=== PATIENT | female | born 1945 | race Caucasian/White ===

== ENCOUNTER 2020-12-11 23:44 | Observation (INO) ==
[2020-12-12 01:06] LABS: Basophils % 0.2 %; Hematocrit 35.7 % (35.3-44.9); Hemoglobin 10.9 g/dL (11.5-15.4); Immature Granulocytes % 0.5 % (0-4); Lymphocytes # 0.4 K/mcL (0.6-4.6); Lymphocytes % 3.8 %; Mean Corpuscular HGB Conc 30.5 g/dL (31.6-35.5); Mean Corpuscular Hemoglobin 27.9 pg (28.0-33.3); Mean Corpuscular Volume 91.3 fL (83.0-100.0); Mean Platelet Volume 10.7 fL (9.4-12.4); Monocytes # 0.8 K/mcL (0.0-1.3); Monocytes % 7.6 %; Neutrophils # 9.8 K/mcL (1.6-8.9); Platelet Count 163 K/mcL (140-400); Red Blood Count 3.91 M/mcL (3.82-4.97); Segmented Neutrophils % 87.9 %; White Blood Count 11.1 K/mcL (4.3-11.1)
[2020-12-12 01:32] LABS: Calcium 9.6 mg/dL (8.6-10.3); Potassium 4.1 mEq/L (3.5-5.1); Troponin I 0.03 ng/mL (< 0.04)
[2020-12-12] MEDS ORDERED: Furosemide 40 MG/4 ML VIAL IVP ONE ×2 (02:17→13:14)
[2020-12-12] MEDS ORDERED: *HR* OxyCODONE Immed Rel 5 MG TABLET PO PRN ×2 (03:34→13:17)
[2020-12-12] MEDS ORDERED: *HR* HYDROcodone/Acet 5/325 mg TABLET PO PRN (03:34)
[2020-12-12] MEDS ORDERED: Ondansetron 4 MG/2 ML VIAL IVP PRN (03:34)
[2020-12-12] MEDS ORDERED: Naloxone 0.4 MG/ML INJ IVP PRN (03:34)
[2020-12-12] MEDS ORDERED: Acetaminophen 325 MG TABLET PO PRN (03:34)
[2020-12-12 03:40] LABS: Adenovirus Not Detected (Not Detect); Bordetella Pertussis Not Detected (Not Detect); Chlamydophila pneumoniae Not Detected (Not Detect); Coronavirus 229E Not Detected (Not Detect); Coronavirus HKU1 Not Detected (Not Detect); Coronavirus NL63 Not Detected (Not Detect); Coronavirus OC43 Not Detected (Not Detect); Human Metapneumovirus Not Detected (Not Detect); Human Rhinovirus/Enterovirus Not Detected (Not Detect); Influenza A Subtype 2009 H1 Not Detected (Not Detect); Influenza B Not Detected (Not Detect); Mycoplasma pneumoniae Not Detected (Not Detect); Parainfluenza Virus 1 Not Detected (Not Detect); Parainfluenza Virus 2 Not Detected (Not Detect); Parainfluenza Virus 3 Not Detected (Not Detect); Parainfluenza Virus 4 Not Detected (Not Detect); Respiratory Syncytial Virus Not Detected (Not Detect); SARS-CoV-2 Not Detected (Not Detect)
[2020-12-12] MEDS ORDERED: Perflutren Lipid Microsphere 1.3 ML in 0.9 % Sodium Chloride 8.7 ML IVP PRN (06:51)
[2020-12-12 07:35] LABS: Calcium 9.5 mg/dL (8.6-10.3); Potassium 3.8 mEq/L (3.5-5.1)
[2020-12-12] MEDS: cefTRIAXone 1,000 MG in Water for inj. (sterile) 10 ML IVP SCH (09:04)
[2020-12-12] MEDS ORDERED: Albumin 25% 25gram/100mL 25 GM/100 ML IV.SOLN IVPB ONE (13:15)
[2020-12-13 03:15] LABS: Basophils % 0.5 %; Eosinophils # 0.1 K/mcL (0.0-0.6); Hematocrit 29.8 % (35.3-44.9); Hemoglobin 9.4 g/dL (11.5-15.4); Immature Granulocytes % 0.2 % (0-4); Lymphocytes # 0.8 K/mcL (0.6-4.6); Lymphocytes % 18.4 %; Mean Corpuscular HGB Conc 31.5 g/dL (31.6-35.5); Mean Corpuscular Hemoglobin 28.7 pg (28.0-33.3); Mean Corpuscular Volume 91.1 fL (83.0-100.0); Mean Platelet Volume 10.6 fL (9.4-12.4); Monocytes # 0.7 K/mcL (0.0-1.3); Monocytes % 16.6 %; Neutrophils # 2.7 K/mcL (1.6-8.9); Platelet Count 125 K/mcL (140-400); Red Blood Count 3.27 M/mcL (3.82-4.97); Red Cell Distribution Width 15.3 % (11.5-14.5); Segmented Neutrophils % 62.3 %
[2020-12-13 03:16] LABS: White Blood Count 4.4 K/mcL (4.3-11.1)
[2020-12-13 03:37] LABS: Calcium 9.1 mg/dL (8.6-10.3); Phosphorous 2.8 mg/dL (2.7-4.5); Potassium 3.4 mEq/L (3.5-5.1)
[2020-12-13] MEDS: *HR* Heparin 5,000 UNIT/ML VIAL SQ SCH ×2 (05:38→16:55)
[2020-12-13] MEDS ORDERED: *HR* Enoxaparin 40 MG/0.4 ML SYRINGE SQ SCH (06:00)
[2020-12-13] MEDS: cefTRIAXone 1,000 MG in Water for inj. (sterile) 10 ML IVP SCH (08:52)
[2020-12-13] MEDS: predniSONE 20 MG TABLET PO SCH (13:20)
[2020-12-13] MEDS: Ipratropium/Albuterol Neb 3 ML IH SCH ×4 (15:27→23:24)
[2020-12-13 15:53] LABS: Bilirubin,Urine Negative (Negative); Blood,Urine Trace (Negative); Clarity,Urine Turbid (Clear); Color,Urine Yellow (Yellow); Glucose,Urine (UA) Normal (Normal); Ketones,Urine Negative (Negative); Leukocyte Esterase,Urine Large (Negative); Nitrite,Urine Negative (Negative); PH,Urine 8.5 pH Units (5.0-8.0); Protein,Urine 70 mg/dL (Neg-Trace); Specific Gravity,Urine 1.016 (1.010-1.025); Squamous Epithelial Cell,Urine Few per hpf (None-Few); Transitional Epi Cells,Urine Few per hpf (None-Few); Urobilinogen,Urine Normal (Normal); WBC,Urine TNTC per hpf (0-3)
[2020-12-14] MEDS: Ipratropium/Albuterol Neb 3 ML IH SCH ×7 (03:19→23:25)
[2020-12-14] MEDS: *HR* Heparin 5,000 UNIT/ML VIAL SQ SCH ×2 (05:09→17:17)
[2020-12-14] MEDS: cefTRIAXone 1,000 MG in Water for inj. (sterile) 10 ML IVP SCH (09:41)
[2020-12-14] MEDS: predniSONE 20 MG TABLET PO SCH (09:41)
[2020-12-14 10:18] LABS: Basophils % 0.3 %; Hematocrit 32.5 % (35.3-44.9); Immature Granulocytes % 0.6 % (0-4); Lymphocytes # 0.5 K/mcL (0.6-4.6); Lymphocytes % 13.7 %; Mean Corpuscular HGB Conc 30.8 g/dL (31.6-35.5); Mean Corpuscular Hemoglobin 27.9 pg (28.0-33.3); Mean Corpuscular Volume 90.8 fL (83.0-100.0); Monocytes # 0.4 K/mcL (0.0-1.3); Monocytes % 9.8 %; Neutrophils # 2.7 K/mcL (1.6-8.9); Platelet Count 141 K/mcL (140-400); Red Blood Count 3.58 M/mcL (3.82-4.97); Red Cell Distribution Width 14.7 % (11.5-14.5); Segmented Neutrophils % 75.6 %; White Blood Count 3.6 K/mcL (4.3-11.1)
[2020-12-14 10:36] LABS: BUN/Creatinine Ratio 18 (6-26); Blood Urea Nitrogen 19 mg/dL (8-23); Calcium 9.6 mg/dL (8.6-10.3); Carbon Dioxide 34 mEq/L (23-29); Chloride 100 mEq/L (98-107); Glucose 183 mg/dL (70-105); Magnesium 2.1 mg/dL (1.6-2.6); Osmolality,Calculated 295 (280-300); Potassium 3.6 mEq/L (3.5-5.1); Sodium 139 mEq/L (136-145); eGFR For African Americans > 60 (> 60); eGFR For Non-African Americans 51 (> 60)
[2020-12-15 03:10] VITALS: O2SAT 97
[2020-12-15] MEDS: Ipratropium/Albuterol Neb 3 ML IH SCH ×4 (03:57→15:26)
[2020-12-15] MEDS: *HR* Heparin 5,000 UNIT/ML VIAL SQ SCH (05:29)
[2020-12-15 07:49] VITALS: BP 97/58; PULSE 70; TEMP 97.8
[2020-12-15] MEDS: cefTRIAXone 1,000 MG in Water for inj. (sterile) 10 ML IVP SCH (08:28)
[2020-12-15] MEDS: predniSONE 20 MG TABLET PO SCH (08:28)
[2020-12-15 12:34] LABS: Adenovirus Not Detected (Not Detect); Bordetella Pertussis Not Detected (Not Detect); Chlamydophila pneumoniae Not Detected (Not Detect); Coronavirus 229E Not Detected (Not Detect); Coronavirus HKU1 Not Detected (Not Detect); Coronavirus NL63 Not Detected (Not Detect); Coronavirus OC43 Not Detected (Not Detect); Human Metapneumovirus Not Detected (Not Detect); Human Rhinovirus/Enterovirus Not Detected (Not Detect); Influenza A Subtype 2009 H1 Not Detected (Not Detect); Influenza B Not Detected (Not Detect); Mycoplasma pneumoniae Not Detected (Not Detect); Parainfluenza Virus 1 Not Detected (Not Detect); Parainfluenza Virus 2 Not Detected (Not Detect); Parainfluenza Virus 3 Not Detected (Not Detect); Parainfluenza Virus 4 Not Detected (Not Detect); Respiratory Syncytial Virus Not Detected (Not Detect); SARS-CoV-2 Not Detected (Not Detect)
== END 2020-12-15 16:34 ==
LOC: EMEROOARM 23:44 → 3BNU 23:44 → SUATTDRO 12-12 03:56 → 3BNU 12-12 05:17
PROVIDERS: ADMIT Family Medicine; ATTEND Student in an Organized Health Care Education/Training Program

== ENCOUNTER 2021-11-27 12:49 | Inpatient (IN) ==
[2021-11-27] MEDS ORDERED: Iopamidol - 370 500 ML MLS IVP ONE (15:18)
[2021-11-27] MEDS ORDERED: Ipratropium/Albuterol Neb 3 ML IH ONE (15:19)
[2021-11-27 16:08] LABS: Basophils % 0.3 %; Eosinophils % 0.1 %; Hematocrit 36.4 % (35.3-44.9); Hemoglobin 11.5 g/dL (11.5-15.4); Immature Granulocytes % 0.6 % (0-4); Lymphocytes # 0.2 K/mcL (0.6-4.6); Lymphocytes % 2.5 %; Mean Corpuscular HGB Conc 31.6 g/dL (31.6-35.5); Mean Corpuscular Hemoglobin 29.2 pg (28.0-33.3); Mean Corpuscular Volume 92.4 fL (83.0-100.0); Mean Platelet Volume 10.6 fL (9.4-12.4); Monocytes # 0.2 K/mcL (0.0-1.3); Monocytes % 3.4 %; Neutrophils # 6.6 K/mcL (1.6-8.9); Platelet Count 119 K/mcL (140-400); Red Blood Count 3.94 M/mcL (3.82-4.97); Red Cell Distribution Width 14.3 % (11.5-14.5); Segmented Neutrophils % 93.1 %; White Blood Count 7.1 K/mcL (4.3-11.1)
[2021-11-27 16:39] LABS: Albumin 3.8 g/dL (3.5-5.7); Albumin/Globulin Ratio 1.4 (1.1-2.2); Bilirubin,Direct 0.4 mg/dL (0.0-0.2); Bilirubin,Indirect 0.9 mg/dL (0.0-1.0); Bilirubin,Total 1.3 mg/dL (0.3-1.0); Calcium 9.5 mg/dL (8.6-10.3); Globulin 2.8 g/dL (2.4-3.5); Total Protein 6.6 g/dL (6.4-8.9); Troponin I 0.25 ng/mL (< 0.04)
[2021-11-27 16:41] LABS: Platelet Estimate Decreased (Normal)
[2021-11-27] MEDS ORDERED: Ringers Solution, Lactated 1,000 ML IVC ONE (17:17)
[2021-11-27 18:51] LABS: Influenza A PCR Negative (Negative); Influenza B PCR Negative (Negative); Resp. Syncytial Virus PCR Negative (Negative)
[2021-11-27 18:52] LABS: SARS-CoV-2 by PCR (In House) Negative (Negative)
[2021-11-27] MEDS ORDERED: cefTRIAXone 1,000 MG in Water for inj. (sterile) 10 ML IVP ONE (19:49)
[2021-11-27 20:02] LABS: Bilirubin,Urine Negative (Negative); Blood,Urine Negative (Negative); Clarity,Urine Clear (Clear); Color,Urine Light-Yellow (Yellow); Glucose,Urine (UA) Normal (Normal); Ketones,Urine Negative (Negative); Leukocyte Esterase,Urine Trace (Negative); Mucus,Urine Few per lpf (None-Few); Nitrite,Urine Negative (Negative); PH,Urine 6.5 pH Units (5.0-8.0); Protein,Urine Trace mg/dL (Neg-Trace); RBC,Urine 0-3 per hpf (0-3); Renal Epithelial Cells,Urine Few per hpf (None-Few); Specific Gravity,Urine 1.013 (1.010-1.025); Squamous Epithelial Cell,Urine Few per hpf (None-Few); Urobilinogen,Urine Normal (Normal)
[2021-11-27] MEDS ORDERED: Acetaminophen 325 MG TABLET PO PRN (21:44)
[2021-11-27] MEDS ORDERED: Naloxone 0.4 MG/ML INJ IVP PRN (21:44)
[2021-11-27] MEDS ORDERED: Ondansetron 4 MG/2 ML VIAL IVP PRN (21:44)
[2021-11-27] MEDS ORDERED: 0.9 % Sodium Chloride 1,000 ML IVC SCH (21:45)
[2021-11-27] MEDS ORDERED: *HR* Heparin 5,000 UNIT/ML VIAL IVP PRN ×2 (23:14)
[2021-11-27] MEDS ORDERED: *HR* Heparin 5,000 UNIT/ML VIAL IVP ONE (23:14)
[2021-11-28] MEDS ORDERED: Aspirin 325 MG TABLET PO ONE (00:22)
[2021-11-28] MEDS ORDERED: Nitroglycerin 0.4 MG TAB.SUBL SL PRN (00:33)
[2021-11-28] MEDS: Morphine Sulfate 2 MG/ML SYRINGE IVP PRN (01:21)
[2021-11-28] MEDS ORDERED: Furosemide 20 MG/2 ML VIAL IVP ONE ×2 (01:30→01:32)
[2021-11-28] MEDS: Heparin 25,000UNIT/250ML 1/2NS 25,000 UNIT/250 ML IV.SOLN IVC SCH ×2 (01:39→21:14)
[2021-11-28 01:49] LABS: Calcium 9.2 mg/dL (8.6-10.3); Potassium 4.4 mEq/L (3.5-5.1)
[2021-11-28 01:58] LABS: Troponin I 1.89 ng/mL (< 0.04)
[2021-11-28] MEDS: Ipratropium/Albuterol Neb 3 ML IH PRN ×3 (02:09→20:10)
[2021-11-28 02:59] LABS: Hematocrit 38.3 % (35.3-44.9); Hemoglobin 11.6 g/dL (11.5-15.4); Mean Corpuscular HGB Conc 30.3 g/dL (31.6-35.5); Mean Corpuscular Hemoglobin 28.4 pg (28.0-33.3); Mean Corpuscular Volume 93.6 fL (83.0-100.0); Platelet Count 114 K/mcL (140-400); Red Blood Count 4.09 M/mcL (3.82-4.97); Red Cell Distribution Width 14.6 % (11.5-14.5); White Blood Count 6.5 K/mcL (4.3-11.1)
[2021-11-28 03:00] LABS: Heparin anti-factor XA UFH 0.44 IU/mL (0.30-0.70); INR 1.3; Prothrombin Time 14.1 Seconds (9.4-12.1)
[2021-11-28 03:03] LABS: Activated Partial Thrombo Time 79.4 Seconds (26.0-36.0)
[2021-11-28] MEDS ORDERED: 0.9 % Sodium Chloride 500 ML ONE (13:06)
[2021-11-28] MEDS ORDERED: cefTRIAXone 1,000 MG in 0.9 % Sodium Chloride Mini Bag 100 ML IVPB SCH (21:00)
[2021-11-28] MEDS: cefTRIAXone 1,000 MG in 0.9 % Sodium Chloride Mini Bag 100 ML IVPB SCH (21:13)
[2021-11-28 21:58] LABS: Hematocrit 30.8 % (35.3-44.9); Red Cell Distribution Width 14.8 % (11.5-14.5)
[2021-11-28 22:00] LABS: Hemoglobin 9.7 g/dL (11.5-15.4); Immature Platelets 6.2 % (1.1-6.1); Mean Corpuscular HGB Conc 31.5 g/dL (31.6-35.5); Mean Corpuscular Volume 92.2 fL (83.0-100.0); Mean Platelet Volume 11.3 fL (9.4-12.4); Red Blood Count 3.34 M/mcL (3.82-4.97); White Blood Count 11.5 K/mcL (4.3-11.1)
[2021-11-29 03:40] LABS: Hematocrit 30.4 % (35.3-44.9); Mean Corpuscular Volume 92.7 fL (83.0-100.0); Monocytes % 6.6 %; Red Blood Count 3.28 M/mcL (3.82-4.97)
[2021-11-29 03:42] LABS: Basophils % 0.3 %; Eosinophils # 0.1 K/mcL (0.0-0.6); Eosinophils % 0.8 %; Hemoglobin 9.5 g/dL (11.5-15.4); Immature Granulocytes % 0.3 % (0-4); Immature Platelets 4.9 % (1.1-6.1); Lymphocytes # 0.5 K/mcL (0.6-4.6); Lymphocytes % 5.3 %; Mean Corpuscular HGB Conc 31.3 g/dL (31.6-35.5); Mean Platelet Volume 11.7 fL (9.4-12.4); Monocytes # 0.7 K/mcL (0.0-1.3); Red Cell Distribution Width 14.7 % (11.5-14.5); Segmented Neutrophils % 86.7 %; White Blood Count 10.1 K/mcL (4.3-11.1)
[2021-11-29 03:50] LABS: Neutrophils # 8.8 K/mcL (1.6-8.9); Platelet Count 91 K/mcL (140-400)
[2021-11-29 03:59] LABS: Magnesium 1.8 mg/dL (1.6-2.6); Phosphorous 2.9 mg/dL (2.7-4.5)
[2021-11-29 04:01] LABS: Calcium 8.2 mg/dL (8.6-10.3); Potassium 3.6 mEq/L (3.5-5.1)
[2021-11-29] MEDS: Aspirin 81 MG TAB.CHEW PO SCH (09:08)
[2021-11-29] MEDS: Ipratropium/Albuterol Neb 3 ML IH PRN (14:06)
[2021-11-29] MEDS: Ipratropium/Albuterol Neb 3 ML IH SCH ×3 (15:45→23:49)
[2021-11-29] MEDS: *HR* Heparin 5,000 UNIT/ML VIAL SQ SCH (18:06)
[2021-11-29] MEDS: cefTRIAXone 1,000 MG in 0.9 % Sodium Chloride Mini Bag 100 ML IVPB SCH (21:23)
[2021-11-30 03:16] LABS: Basophils % 0.3 %; Mean Platelet Volume 11.5 fL (9.4-12.4); Red Cell Distribution Width 14.8 % (11.5-14.5); Segmented Neutrophils % 78.3 %
[2021-11-30 03:18] LABS: Eosinophils # 0.1 K/mcL (0.0-0.6); Hematocrit 30.6 % (35.3-44.9); Hemoglobin 9.4 g/dL (11.5-15.4); Immature Granulocytes % 0.4 % (0-4); Immature Platelets 7.3 % (1.1-6.1); Lymphocytes # 0.8 K/mcL (0.6-4.6); Lymphocytes % 10.9 %; Mean Corpuscular HGB Conc 30.7 g/dL (31.6-35.5); Mean Corpuscular Hemoglobin 28.9 pg (28.0-33.3); Mean Corpuscular Volume 94.2 fL (83.0-100.0); Monocytes # 0.6 K/mcL (0.0-1.3); Monocytes % 8.1 %; Neutrophils # 5.4 K/mcL (1.6-8.9); Red Blood Count 3.25 M/mcL (3.82-4.97); White Blood Count 6.9 K/mcL (4.3-11.1)
[2021-11-30 03:36] LABS: Calcium 8.5 mg/dL (8.6-10.3); Phosphorous 2.2 mg/dL (2.7-4.5); Potassium 3.9 mEq/L (3.5-5.1)
[2021-11-30 03:45] LABS: Platelet Count 92 K/mcL (140-400)
[2021-11-30] MEDS: Ipratropium/Albuterol Neb 3 ML IH SCH ×5 (04:11→20:15)
[2021-11-30] MEDS ORDERED: Potassium Phosphate 44 MEQ in 0.9 % Sodium Chloride 250 ML IVPB ONE (05:16)
[2021-11-30] MEDS: *HR* Heparin 5,000 UNIT/ML VIAL SQ SCH ×2 (05:24→16:54)
[2021-11-30] MEDS: Aspirin 81 MG TAB.CHEW PO SCH (09:36)
[2021-12-01] MEDS: Ipratropium/Albuterol Neb 3 ML IH SCH ×7 (00:03→22:50)
[2021-12-01 02:15] LABS: Basophils % 0.6 %; Eosinophils # 0.2 K/mcL (0.0-0.6); Eosinophils % 3.1 %; Hematocrit 30.2 % (35.3-44.9); Hemoglobin 9.4 g/dL (11.5-15.4); Immature Granulocytes % 0.4 % (0-4); Lymphocytes # 0.9 K/mcL (0.6-4.6); Lymphocytes % 17.9 %; Mean Corpuscular HGB Conc 31.1 g/dL (31.6-35.5); Mean Corpuscular Volume 93.2 fL (83.0-100.0); Mean Platelet Volume 11.5 fL (9.4-12.4); Monocytes # 0.5 K/mcL (0.0-1.3); Monocytes % 10.4 %; Neutrophils # 3.3 K/mcL (1.6-8.9); Platelet Count 102 K/mcL (140-400); Red Blood Count 3.24 M/mcL (3.82-4.97); Red Cell Distribution Width 14.8 % (11.5-14.5); Segmented Neutrophils % 67.6 %; White Blood Count 4.8 K/mcL (4.3-11.1)
[2021-12-01 02:41] LABS: Calcium 8.6 mg/dL (8.6-10.3); Phosphorous 2.4 mg/dL (2.7-4.5); Potassium 3.7 mEq/L (3.5-5.1)
[2021-12-01] MEDS: *HR* Heparin 5,000 UNIT/ML VIAL SQ SCH ×2 (06:21→18:35)
[2021-12-01] MEDS: Aspirin 81 MG TAB.CHEW PO SCH (08:41)
[2021-12-01] MEDS ORDERED: Nitroglycerin 1,000 MCG/5 ML VIAL IV ONE (11:14)
[2021-12-01] MEDS ORDERED: Heparin 1,000 UNITS/500 mL 500 ML ONE (11:14)
[2021-12-01] MEDS ORDERED: Iopamidol - 370 200 ML INFUS..BTL ONE (11:14)
[2021-12-01] MEDS ORDERED: 0.9 % Sodium Chloride 1,000 ML ONE (11:14)
[2021-12-01] MEDS ORDERED: *HR* Heparin 10,000 UNIT/10 ML VIAL ONE (11:14)
[2021-12-01] MEDS ORDERED: *HR* Midazolam HCl 2 MG/2 ML VIAL ONE (12:05)
[2021-12-01] MEDS ORDERED: *HR* FentaNYL (PF) 100 MCG/2 ML VIAL ONE (12:05)
[2021-12-01] MEDS: Benzonatate 100 MG CAPSULE PO PRN (20:52)
[2021-12-01] MEDS: Melatonin 3 MG TABLET PO PRN (20:52)
[2021-12-02 02:23] LABS: Immature Granulocytes % 0.6 % (0-4); Red Cell Distribution Width 14.6 % (11.5-14.5)
[2021-12-02 02:25] LABS: Basophils % 0.6 %; Eosinophils # 0.2 K/mcL (0.0-0.6); Eosinophils % 3.4 %; Hematocrit 30.8 % (35.3-44.9); Hemoglobin 9.4 g/dL (11.5-15.4); Immature Platelets 10.3 % (1.1-6.1); Lymphocytes # 1.2 K/mcL (0.6-4.6); Lymphocytes % 23.1 %; Mean Corpuscular HGB Conc 30.5 g/dL (31.6-35.5); Mean Corpuscular Hemoglobin 28.9 pg (28.0-33.3); Mean Corpuscular Volume 94.8 fL (83.0-100.0); Mean Platelet Volume 11.8 fL (9.4-12.4); Monocytes # 0.6 K/mcL (0.0-1.3); Monocytes % 12.4 %; Platelet Count 103 K/mcL (140-400); Red Blood Count 3.25 M/mcL (3.82-4.97); Segmented Neutrophils % 59.9 %
[2021-12-02 02:42] LABS: Calcium 8.7 mg/dL (8.6-10.3); Phosphorous 2.4 mg/dL (2.7-4.5); Potassium 4.4 mEq/L (3.5-5.1)
[2021-12-02] MEDS: Ipratropium/Albuterol Neb 3 ML IH SCH ×6 (04:05→23:25)
[2021-12-02] MEDS: *HR* Heparin 5,000 UNIT/ML VIAL SQ SCH ×2 (05:21→17:10)
[2021-12-02] MEDS: Aspirin 81 MG TAB.CHEW PO SCH (08:07)
[2021-12-02] MEDS: Melatonin 3 MG TABLET PO PRN (20:24)
[2021-12-02] MEDS: Benzonatate 100 MG CAPSULE PO PRN (20:24)
[2021-12-03] MEDS: Ipratropium/Albuterol Neb 3 ML IH SCH ×6 (04:13→23:45)
[2021-12-03 05:02] LABS: Basophils % 0.6 %; Eosinophils # 0.2 K/mcL (0.0-0.6); Hematocrit 30.9 % (35.3-44.9); Hemoglobin 9.4 g/dL (11.5-15.4); Immature Granulocytes % 0.8 % (0-4); Lymphocytes # 1.2 K/mcL (0.6-4.6); Lymphocytes % 24.8 %; Mean Corpuscular HGB Conc 30.4 g/dL (31.6-35.5); Mean Corpuscular Hemoglobin 28.6 pg (28.0-33.3); Mean Corpuscular Volume 93.9 fL (83.0-100.0); Mean Platelet Volume 11.1 fL (9.4-12.4); Monocytes # 0.6 K/mcL (0.0-1.3); Monocytes % 12.4 %; Platelet Count 135 K/mcL (140-400); Red Blood Count 3.29 M/mcL (3.82-4.97); Red Cell Distribution Width 14.6 % (11.5-14.5); Segmented Neutrophils % 57.4 %; White Blood Count 4.8 K/mcL (4.3-11.1)
[2021-12-03 05:11] LABS: Neutrophils # 2.8 K/mcL (1.6-8.9)
[2021-12-03 05:20] LABS: Calcium 8.8 mg/dL (8.6-10.3); Magnesium 1.9 mg/dL (1.6-2.6); Potassium 3.9 mEq/L (3.5-5.1)
[2021-12-03] MEDS: *HR* Heparin 5,000 UNIT/ML VIAL SQ SCH ×2 (05:23→17:08)
[2021-12-03 05:38] LABS: Platelet Estimate Slight Decrease (Normal); Reactive Lymphocytes Present (Not Present)
[2021-12-03] MEDS: Aspirin 81 MG TAB.CHEW PO SCH (08:36)
[2021-12-03] MEDS: Benzonatate 100 MG CAPSULE PO PRN (10:47)
[2021-12-03] MEDS: Morphine Sulfate 2 MG/ML SYRINGE IVP PRN (15:30)
[2021-12-04] MEDS: Ipratropium/Albuterol Neb 3 ML IH SCH ×7 (01:44→23:59)
[2021-12-04] MEDS: Benzonatate 100 MG CAPSULE PO PRN ×2 (02:08→08:17)
[2021-12-04 02:26] LABS: Basophils % 0.8 %; Eosinophils # 0.2 K/mcL (0.0-0.6); Hematocrit 30.8 % (35.3-44.9); Hemoglobin 9.4 g/dL (11.5-15.4); Immature Granulocytes % 0.8 % (0-4); Lymphocytes # 1.3 K/mcL (0.6-4.6); Lymphocytes % 25.1 %; Mean Corpuscular HGB Conc 30.5 g/dL (31.6-35.5); Mean Corpuscular Hemoglobin 28.7 pg (28.0-33.3); Mean Corpuscular Volume 93.9 fL (83.0-100.0); Mean Platelet Volume 10.7 fL (9.4-12.4); Monocytes # 0.6 K/mcL (0.0-1.3); Platelet Count 173 K/mcL (140-400); Red Blood Count 3.28 M/mcL (3.82-4.97); Red Cell Distribution Width 14.7 % (11.5-14.5); Segmented Neutrophils % 57.3 %; White Blood Count 5.3 K/mcL (4.3-11.1)
[2021-12-04 02:34] LABS: Potassium 3.7 mEq/L (3.5-5.1)
[2021-12-04] MEDS: *HR* Heparin 5,000 UNIT/ML VIAL SQ SCH ×2 (04:36→16:06)
[2021-12-04] MEDS: Aspirin 81 MG TAB.CHEW PO SCH (08:17)
[2021-12-04] MEDS ORDERED: 0.9 % Sodium Chloride 1,000 ML IVC SCH (14:30)
[2021-12-05 01:41] LABS: Hematocrit 31.5 % (35.3-44.9); Hemoglobin 9.7 g/dL (11.5-15.4); Mean Corpuscular HGB Conc 30.8 g/dL (31.6-35.5); Mean Corpuscular Hemoglobin 28.7 pg (28.0-33.3); Mean Corpuscular Volume 93.2 fL (83.0-100.0); Mean Platelet Volume 10.8 fL (9.4-12.4); Platelet Count 195 K/mcL (140-400); Red Blood Count 3.38 M/mcL (3.82-4.97); Red Cell Distribution Width 14.9 % (11.5-14.5); White Blood Count 5.4 K/mcL (4.3-11.1)
[2021-12-05 02:01] LABS: Potassium 4.1 mEq/L (3.5-5.1)
[2021-12-05] MEDS: Ipratropium/Albuterol Neb 3 ML IH SCH ×8 (03:34→21:43)
[2021-12-05] MEDS: *HR* Heparin 5,000 UNIT/ML VIAL SQ SCH ×2 (06:06→18:21)
[2021-12-05] MEDS: Aspirin 81 MG TAB.CHEW PO SCH (07:44)
[2021-12-05] MEDS ORDERED: Fluconazole 150 MG TABLET PO SCH (15:45)
[2021-12-05 17:01] LABS: Influenza A PCR Negative (Negative); Influenza B PCR Negative (Negative); Resp. Syncytial Virus PCR Negative (Negative); SARS-CoV-2 by PCR (In House) Negative (Negative)
[2021-12-05] MEDS: Nystatin POWDER 30 GM BOTTLE TP SCH ×2 (18:20→20:13)
[2021-12-05 18:56] VITALS: BP 111/90; PULSE 90; TEMP 98
[2021-12-05 20:16] VITALS: O2SAT 98
== END 2021-12-05 22:26 | DRG 689 ==
LOC: EMEROOARM 12:49 → 3NENU 12:49 → SUATTDRO 21:30 → 3NENU 22:14 → SUATTDRO 11-28 14:02
PROVIDERS: ADMIT Internal Medicine; ATTEND Pharmacist